=== PATIENT | male | born 1975 | race Caucasian/White ===

== ENCOUNTER 2018-02-01 05:37 | Day surgery (SDC) | payer BC, OTHER ==
[~2018-02-01 05:37] MED LIST: RINGERS SOLUTION,LACTATED 1,000 ML IV PRN; VANCOMYCIN HCL 1,000 MG in DEXTROSE 5%-WATER 250 ML IV PRN
[2018-02-01 06:31] LABS: ABSOLUTE EOSINOPHILS # (AUTO) 0.2 10^3/uL (0.0-0.6); ABSOLUTE LYMPHOCYTES (AUTO) 1.4 10^3/uL (0.5-4.7); ABSOLUTE MONOCYTES (AUTO) 0.6 10^3/uL (0.1-1.4); BASOPHILS % (AUTO) 0.3 % (0-2); EOSINOPHILS % (AUTO) 3.5 % (0-6); HEMATOCRIT 38.9 % (37.9-51.0); HEMOGLOBIN 14.3 g/dL (13.5-17.0); LYMPHOCYTES % (AUTO) 22.6 % (13-45); MEAN CORPUSCULAR HEMOGLOBIN 31.6 pg (27.0-33.4); MEAN CORPUSCULAR HGB CONC 36.7 g/dL (32.0-36.0); MEAN CORPUSCULAR VOLUME 86 fl (80-97); PLATELET COUNT 242 10^3/uL (150-450); RED BLOOD COUNT 4.53 10^6/uL (4.35-5.55); RED CELL DISTRIBUTION WIDTH 12.1 % (11.5-14.0); SEGMENTED NEUTROPHILS % (AUTO) 64.6 % (42-78); TOTAL CELLS COUNTED % (AUTO) 100 %; WHITE BLOOD COUNT 6.2 10^3/uL (4.0-10.5)
[2018-02-01] MEDS ORDERED: PROPOFOL INJ 200 MG/20 ML VIAL IV ONE ×2 (06:47→11:42)
[2018-02-01] MEDS ORDERED: MIDAZOLAM 2 MG/2 ML INJ ONE (06:47)
[2018-02-01] MEDS ORDERED: FENTANYL CITRATE INJ/PF 100 MCG/2 ML AMPUL ONE (06:47)
[2018-02-01] MEDS ORDERED: KETOROLAC TROMETHAMINE INJ/PF 30 MG/1 ML SDV ONE (07:55)
[2018-02-01] MEDS ORDERED: BUPIVACAINE HCL 0.25 % INJ/PF (2.5 MG/1 ML) 30 ML VIAL ONE (08:19)
[2018-02-01] MEDS ORDERED: LIDOCAINE 1% INJ-PF (10 MG/ML) 30 ML SDV ONE (08:20)
[2018-02-01] MEDS ORDERED: LIDOCAINE 2% INJ-PF (20 MG/ML) 10 ML AMPUL ONE (08:42)
[2018-02-01] MEDS ORDERED: MEPERIDINE HCL/PF INJ 25 MG/1 ML DISP.SYRIN IV PRN (10:30)
[2018-02-01] MEDS ORDERED: PROMETHAZINE HCL INJ 25 MG/1 ML VIAL IV PRN ×2 (10:30)
[2018-02-01] MEDS ORDERED: FENTANYL CITRATE INJ/PF 100 MCG/2 ML AMPUL IV PRN ×3 (10:30)
[2018-02-01] MEDS ORDERED: MORPHINE SULFATE 10 MG/ML INJ IV PRN (10:30)
[2018-02-01] MEDS ORDERED: OXYCODONE-ACETAMINOPHEN 5-325 MG TABLET PO PRN ×2 (10:30)
[2018-02-01] MEDS ORDERED: DIPHENHYDRAMINE HCL 50 MG/ML VIAL IV PRN (10:30)
--- NOTE | 2018-02-01 12:11 | RADIOLOGY REPORT (SQ) ---
EXAM DESCRIPTION: CHEST SINGLE VIEW COMPLETED DATE/TIME: 02/01/2018 12:02 pm REASON FOR STUDY: s/p port a cath placement COMPARISON: None. EXAM PARAMETERS: NUMBER OF VIEWS: One view. TECHNIQUE: Single frontal radiographic view of the chest acquired. RADIATION DOSE: NA LIMITATIONS: None. FINDINGS: LUNGS AND PLEURA: No opacities, masses or pneumothorax. No pleural effusion. MEDIASTINUM AND HILAR STRUCTURES: No masses. Contour normal. HEART AND VASCULAR STRUCTURES: Heart normal in size. Normal vasculature. BONES: No acute findings. HARDWARE: Left-sided permanent central line tip superior vena cava. No pneumothorax. OTHER: No other significant finding. IMPRESSION: Left-sided permanent central line tip superior vena cava. No pneumothorax. TECHNICAL DOCUMENTATION: JOB ID: [id number] [employer]- All Rights Reserved Reading location - IP/workstation name: [email or web address]
[2018-02-01 13:38] VITALS: BP 144/64
--- NOTE | 2018-02-01 16:14 | RADIOLOGY REPORT (SQ) ---
EXAM DESCRIPTION: FLUORO/CV PLACEMENT COMPLETED DATE/TIME: 02/01/2018 2:43 pm REASON FOR STUDY: PORTACATH PLCMT LEFT SIDE ASST WITH FLUORO IN OR C20 MALIGNANT NEOPLASM OF RECTUM COMPARISON: None. FLUOROSCOPY TIME: 1.3 minutes 2 digital fluoroscopic images saved to PACS. TECHNIQUE: Intra-operative images acquired during surgical procedure to evaluate progress. NUMBER OF IMAGES: 2 digital fluoroscopic images LIMITATIONS: None. FINDINGS: Intra procedural imaging and fluoro during placement of a left-sided permanent central edilia e with the tip in the superior vena cava IMPRESSION: IMAGE(S) OBTAINED DURING PROCEDURE. COMMENT: Quality ID [id number]: Final reports for procedures using fluoroscopy that document radiation exp osure indices, or exposure time and number of fluorographic images (if radiation exposure indices are not available) Please consult full operative report of the attending physician for description of the procedure. TECHNICAL DOCUMENTATION: JOB ID: [id number] [employer]- All Rights Reserved Reading location - IP/workstation name: [email or web address]
--- NOTE | 2018-02-01 21:58 | Discharge Summary ---
Discharge Summary (SDC) - Discharge Final Diagnosis: Metastatic colorectal cancer Date of Surgery: 02/01/18 Discharge Date: 02/01/18 Condition: Stable Forms: ASU Anesthesia D/C Instruction, Discharge POC-Surgical Service Referrals: RUTH ALATORRE MD [ACTIVE STAFF] - (Follow up as needed) Discharge Diet: As Tolerated Respiratory Treatments at Home: Deep Breathing/Coughing, Incentive Spirometer Discharge Activity: Activity As Tolerated Home Care Assistance: None Needed Report the Following to Your Physician Immediately: Shortness of Breath, Nausea , Vomiting, Increase in Pain, Fever over 101 Degrees, Unusual Bleeding
--- NOTE | 2018-02-01 22:07 | Operative Report ---
Nonrecallable Operative Report DATE OF SURGERY: 02/01/18 PREOPERATIVE DIAGNOSIS: Metastatic colorectal cancer POSTOPERATIVE DIAGNOSIS: Same as above OPERATION: 1. Ultrasound-guided central venous puncture. 2. Left internal jugular vein Mediport placement SURGEON: RUTH ALATORRE ANESTHESIA: LMAC TISSUE REMOVED OR ALTERED: None COMPLICATIONS: Kinking of the Mediport catheter, requiring removal and replacement of the catheter. ESTIMATED BLOOD LOSS: 30 cc PROCEDURE: Drains/implants: Left internal jugular vein Mediport. Procedure in detail: After informed consent was obtained, the patient was brought to the operating room and laid in the Trendelenburg position. The area of the neck and chest were prepped and draped in a normal sterile fashion. The ultrasound was used to identify the left internal jugular vein. It was compressible with normal flow. 1% lidocaine was then used to anesthetize the skin of the neck and left chest. Under direct ultrasonic guidance, the supplied access needle was used to cannulate the left internal jugular vein. Upon entry into the vein, there was noted to be dark venous, nonpulsatile blood returned into the syringe. The wire was inserted into the lumen of the vein. It was confirmed to be within the lumen of the vein using the ultrasound and fluoroscopy. Once this was confirmed, a separate incision was created in the left chest and a pocket was created for the Mediport hub. The catheter was tunneled from the hub insertion site to the needle insertion site. The dilator and breakaway sheath were then inserted over the wire. This was done under direct fluoroscopic guidance. The wire and dilator were removed, leaving the sheath within the superior vena cava. The catheter was placed into the breakaway sheath. The sheath was pulled away, leaving the catheter within the SVC. Once this was confirmed, the catheter was pulled back to an appropriate level. There was noted to be a kinking in the catheter at this time. The catheter did not flush easily. Secondary to this, the catheter was removed and replaced. This was successful. There was no kinking of the catheter after it was re-tunneled. The catheter was trimmed to length, and attached to the Mediport hub. The hub was placed into the pocket and sutured to the chest wall using 3-0 Vicryl suture. The subcutaneous tissue was then closed using 3-0 Vicryl suture. The overlying skin was closed using 4-0 Vicryl Rapide suture in subcuticular fashion. The Mediport was then accessed, aspirated, and flushed with heparinized saline. This flushed very easily. Dressings were placed, and the procedure was concluded. All sponge, instrument, and needle counts were correct x2. Condition: Stable.
== END 2018-02-01 13:15 | disposition home or self-care (01) ==
LOC: OROUT 05:37
PROVIDERS: ATTEND Surgery
DX: C20 Malignant neoplasm of rectum (principal)
CPT/HCPCS: 36415; 85025; 71045; 77001; 36561; C1788; J2250; J3010; J3490 ×2; J1885; J7060; J2704; J3370; J1642; 532

== ENCOUNTER → 2019-01-31 | Outpatient (CLI) | payer OTHER ==
--- NOTE | 2019-01-31 13:19 | RADIOLOGY REPORT (SQ) ---
EXAM DESCRIPTION: CT CHEST WITH; CT ABD/PELVIS WITH IV ORAL COMPLETED DATE/TIME: 01/31/2019 10:04 am; 01/31/2019 10:08 am REASON FOR STUDY: MALIGNANT NEOPLASM OF RECTUM C20 MALIGNANT NEOPLASM OF RECTUM COMPARISON: AP chest 02/01/2018 RENAL FUNCTION: Creatinine 1.2 TECHNIQUE: CT scan of the chest performed using helical scanning technique with dynamic intravenous contrast injection. Images reviewed with lung, soft tissue and bone windows. Reconstructed coronal a nd sagittal MPR images reviewed. All images stored on PACS. CT scan of the abdomen and pelvis performed with intravenous and with oral contrastusing helical scan luis technique with dynamic intravenous contrast injection. Images reviewed with lung, soft tissue a nd bone windows. Reconstructed coronal and sagittal MPR images reviewed. Delayed images for evaluat ion of the urinary system also acquired and evaluated. All images stored on PACS. All CT scanners at this facility use dose modulation, iterative reconstruction, and/or weight based d osing when appropriate to reduce radiation dose to as low as reasonably achievable (ALARA). [facility]: Dose Right [facility]: CareDose [facility]: Dose Right [facility]: Teradose 4D [facility]: [employer] RADIATION DOSE: CT Rad equipment meets quality standard of care and radiation dose reduction techniq ues were employed. CTDIvol: 5.3 - 5.5 mGy. DLP: 824 mGy-cm. . LIMITATIONS: None. FINDINGS: CHEST: LUNGS AND PLEURA: Multiple lung nodules are present. Index lesions are as follows: 2 x 1.4 cm nodule right upper lobe axial image 50/109 Anterior left upper lobe 1.5 x 1.3 cm axial image 69/109 No pleural effusion. No pneumothorax. Airways are patent. HILAR AND MEDIASTINAL STRUCTURES: No identified masses or abnormal nodes. HEART AND VASCULAR STRUCTURES: No aneurysm or dissection. No central pulmonary emboli. No pericardi al effusion. HARDWARE: Left-sided permanent central line tip superior vena cava THYROID AND OTHER SOFT TISSUES: No masses. No adenopathy. BONES: No significant finding. OTHER: No other significant finding. ABDOMEN AND PELVIS: LIVER: Liver masses are present, index lesions are as follows: Posterior right lobe liver 5 cm diameter axial image 27/98 Inferior right lobe liver 3.6 x 2.6 cm axial image 35/98 SPLEEN: Normal size. No focal lesions. PANCREAS: No masses. No significant calcifications. No adjacent inflammation or peripancreatic fluid collections. Pancreatic duct not dilated. GALLBLADDER: Multiple stones. No gallbladder wall thickening or pericholecystic fluid. ADRENAL GLANDS: No significant masses or asymmetry. RIGHT KIDNEY AND URETER: No solid masses. No significant calcification. No hydronephrosis or hydroure ter. LEFT KIDNEY AND URETER: No solid masses. No significant calcification. No hydronephrosis or hydrouret er. AORTA AND VESSELS: No aneurysm. No dissection. Renal arteries, SMA, celiac without stenosis. RETROPERITONEUM: No retroperitoneal adenopathy, hemorrhage or masses. BOWEL AND PERITONEAL CAVITY: Patient drank oral contrast. In the presacral fat, a tumor nodule is p resent measuring 3.5 cm craniocaudad x 3.4 cm AP x 2.2 cm transverse. This is best shown on axial im ages 67-72, coronal image 88, and sagittal image 40. Remainder the peritoneal space is otherwise unr emarkable. No ascites. No free intraperitoneal air. Oral contrast is seen throughout the gastroint estinal tract without bowel obstruction APPENDIX: Normal. ABDOMINAL WALL: No masses. No hernias. PELVIS: Presacral space mass 3.5 x 3.4 x 2.2 cm as above. No pelvic adenopathy or free fluid. Jodie l bladder. BONES: No significant or acute findings. OTHER: No other significant finding. IMPRESSION: Lung nodules as above Liver masses as above. Presacral soft tissue mass as above. COMMENT: No prior imaging for comparison at the time of dictation TECHNICAL DOCUMENTATION: JOB ID: [id number] Quality ID # [id number]: Final reports with documentation of one or more dose reduction techniques (e.g., Au tomated exposure control, adjustment of the mA and/or kV according to patient size, use of iterative reconstruction technique) 2010 [employer]- All Rights Reserved CONTRAST TYPE AND DOSE: contrast/concentration: Isovue 350.00 mg/ml; Total Contrast Delivered: 95.0 ml; Total Saline Delivered: 71.0 ml 95 mL of IV Omnipaque 350- low osmolar. Reading location - IP/workstation name: [email or web address]
== END ==
LOC: RAD 09:33
PROVIDERS: ATTEND Internal Medicine
DX: C20 Malignant neoplasm of rectum (principal)
CPT/HCPCS: 71260; 74177

== ENCOUNTER 2019-06-01 13:04 | Inpatient (IN) | payer OTHER ==
--- NOTE | 2019-06-01 14:00 | ER Document Report ---
ED General - General Chief Complaint: Shortness Of Breath Stated Complaint: SHORTNESS OF BREATH Primary Care Provider: RADHA GOMEZ MD [Primary Care Provider] - Follow up as needed Notes: Patient is a 43-year-old white male with a past medical history of stage IV colorectal cancer with mets to the liver and suspected mets to the brain per report from oncology who presents with a chief complaint of disorientation. The patient is unable to give history he states he is unsure what is really going on. States he just generally feels weak, confused and has some mild sensation of shortness of breath. I called and spoke with the patient's at his request to obtain a better history. I spoke with Fatimah at [phone]. She did confirm the history of colorectal cancer with mets to the liver. She is unsure if there is been mets to the brain. She states that his last set of scans were at [facility] and they were told that it had spread extensively but she is not sure if it had spread to the brain. She states on Tuesday about 3 days ago he began acting disoriented. She denies any history of him being recently ill or having a cough in the past 2 weeks. No known fevers. No recent travel outside of critical access hospital lines. is not ill. She reports his medications for pain were recently changed to morphine. The oncology office thought maybe his disorientation was in relation to this. She states that they stopped the morphine for 24 hours and the patient still presented with disorientation. His last dose of morphine was at 7 AM yesterday morning. The states he has not admitted to her that he was short of breath. They deny any other surgeries or known medical conditions. TRAVEL OUTSIDE OF THE [place] IN LAST 30 DAYS: No - Related Data Allergies/Adverse Reactions: Penicillins Adverse Reaction (Severe, Verified 02/01/18 06:24) Generalized rash Past Medical History - Social History Smoking Status: Unknown if Ever Smoked Family History: Reviewed & Not Pertinent - Past Medical History Cardiac Medical History: Denies: Hx Congestive Heart Failure, Hx Coronary Artery Disease, Hx Heart Attack, Hx Hypertension Pulmonary Medical History: Denies: Hx Asthma, Hx Bronchitis, Hx COPD, Hx Pneumonia, Hx Tuberculosis Neurological Medical History: Denies: Hx Cerebrovascular Accident, Hx Seizures, Hx Parkinson's Disease Renal/ Medical History: Denies: Hx Benign Prostatic Hyperplasia, Hx End Stage Renal Disease, Hx Kidney Stones GI Medical History: Denies: Hx Cirrhosis, Hx Gastroesophageal Reflux Disease, Hx Ulcer Musculoskeletal Medical History: Denies Hx Arthritis, Denies Hx Multiple Sclero sis Psychiatric Medical History: Denies: Hx Bipolar Disorder, Hx Depression, Hx Schizophrenia - Immunizations Hx Diphtheria, Pertussis, Tetanus Vaccination: Yes - 2016 Review of Systems - Review of Systems -: Yes ROS unobtainable due to patient's medical condition Physical Exam - Vital signs Vitals: Resp 22 H 06/01/19 13:41 - General General appearance: Alert In distress: None - HEENT Head: Normocephalic, Atraumatic Eyes: Normal Conjunctiva: Normal Extraocular movements intact: Yes Pupils: PERRL External canal: Normal Tympanic membrane: Normal Nasal: Normal Mouth/Lips: Normal Mucous membranes: Normal, Moist Pharynx: Normal Neck: Normal - Respiratory Respiratory status: No respiratory distress Chest status: Nontender Breath sounds: Normal Chest palpation: Normal - Cardiovascular Rhythm: Regular Heart sounds: Normal auscultation - Extremities General upper extremity: Normal inspection, Nontender, Normal color, Normal ROM, Normal temperature General lower extremity: Normal inspection, Nontender, Normal color, Normal ROM, Normal temperature, Normal weight bearing. No: Ana's sign - Neurological Neuro grossly intact: Yes Cognition: Confused Orientation: Disoriented to person, Disoriented to place, Disoriented to time Ophelia Coma Scale Eye Opening: Spontaneous Corning Coma Scale Verbal: Oriented Corning Coma Scale Motor: Obeys Commands Corning Coma Scale Total: 15 Speech: Normal Cranial nerves: Normal Cerebellar coordination: Normal Motor strength normal: RUE, LLE, RLE Additional motor exam normals: Other - No effort against gravity left upper extremity. No obvious control of the left upper extremity, dystaxia. 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 Unable to perform rapid alternating hand movements or [id number] with the left hand. Notes: Limited exam due to AMS - Psychological Associated symptoms: Confused, Flat affect - Skin Skin Temperature: Warm Skin Moisture: Dry Skin Color: Normal Course - Re-evaluation Re-evalutation: 06/01/19 14:49 EK, sinus tachycardia at 115 bpm. Normal intervals. Some T wave inversions noted in the anterior lateral leads with some questionable ST elevation in the lateral leads. No prior EKG for comparison. Troponins pending at this time. Patient not complaining of chest pain. 06/01/19 16:[address] Richardson regarding the patient's EKG and his elevated troponin. It is obvious the patient is having a STEMI. We immediately consulted with Dr. Choi, automation qa analyst on-call who reviewed the EKG and discussed the patient's case, he agreed with STEMI and recommended transfer to [facility]. I discussed with Dr. Oconnell at [facility] STEMI line who discussed the case with Dr. Isbell. I discussed the patient's history of stage IV colorectal cancer with new findings of brain mets, elevated INR with new onset Eliquis yesterday for PEs and incidental right-sided pneumonia. They recommended that they would only undergo medical management, no interventions would be applied given the patient's history. I discussed this with the who advised that the patient is DNR. We do not currently have the paperwork for that but she reports that she is his power of employee benefits attorney. She was at the patient's bedside by myself and Dr. Richardson discussed this with the patient and herself. They would like comfort measures here in the hospital, they would like the pneumonia managed, his pain managed and consult with hospice care. I discussed this with our hospitalist, Dr. Perkins who will admit the patient to [facility] for further care and management. Patient is stable at this time. He has a nitro drip going at 5. He was given Dilaudid for pain and Levaquin for pneumonia. - Vital Signs Vital signs: Temp Pulse Resp BP Pulse Ox 98.2 F 110 H 18 145/96 H 99 06/01/19 14:12 06/01/19 14:12 06/01/19 14:12 06/01/19 14:12 06/01/19 14:12 - Laboratory Result Diagrams: 06/01/19 14:02 06/01/19 14:02 Laboratory results interpreted by me: 06/01/19 06/01/19 06/01/19 14:02 14:02 14:02 WBC 19.1 H RBC 2.65 L Hgb 8.0 L Hct 24.0 L RDW 19.7 H Seg Neuts % (Manual) 88 H Lymphocytes % (Manual) 4 L Abs Neuts (Manual) 16.8 H Abs Monocytes (Manual) 1.5 H PT 42.5 H APTT 59.3 H Sodium 132.4 L Chloride 95 L Carbon Dioxide 32 H Glucose 132 H Calcium 8.3 L AST 222 H ALT 68 H Alkaline Phosphatase 464 H Ammonia Creatine Kinase 1107 H Albumin 2.8 L 06/01/19 15:40 WBC RBC Hgb Hct RDW Seg Neuts % (Manual) Lymphocytes % (Manual) Abs Neuts (Manual) Abs Monocytes (Manual) PT APTT Sodium Chloride Carbon Dioxide Glucose Calcium AST ALT Alkaline Phosphatase Ammonia < 8.7 L Creatine Kinase Albumin Discharge - Discharge Clinical Impression: Metastatic colorectal cancer Altered mental status Qualifiers: Altered mental status type: unspecified Qualified Code(s): R41.82 - Altered mental status, unspecified STEMI (ST elevation myocardial infarction) Qualifiers: Involved coronary artery: unspecified coronary artery Qualified Code(s): I21.3 - ST elevation (STEMI) myocardial infarction of unspecified site Pulmonary embolism Qualifiers: Pulmonary embolism type: unspecified Chronicity: unspecified Acute cor pulmonale presence: unspecified Qualified Code(s): I26.99 - Other pulmonary embolism without acute cor pulmonale Pneumonia Qualifiers: Pneumonia type: due to unspecified organism Laterality: unspecified laterality Lung location: unspecified part of lung Qualified Code(s): J18.9 - Pneumonia, unspecified organism Condition: Stable Disposition: ADMITTED INPATIENT Admitting Provider: Maddie (Hospitalist) Unit Admitted: IMCU Referrals: RADHA GOMEZ MD [Primary Care Provider] - Follow up as needed
[2019-06-01 14:29] LABS: MEAN CORPUSCULAR HEMOGLOBIN 30.4 pg (27.0-33.4); MEAN CORPUSCULAR HGB CONC 33.5 g/dL (32.0-36.0); MEAN CORPUSCULAR VOLUME 91 fl (80-97); PLATELET COUNT 226 10^3/uL (150-450); RED BLOOD COUNT 2.65 10^6/uL (4.35-5.55); RED CELL DISTRIBUTION WIDTH 19.7 % (11.5-14.0); WHITE BLOOD COUNT 19.1 10^3/uL (4.0-10.5)
[2019-06-01 14:35] LABS: INTERNATIONAL RATION (INR) 4.31; PROTHROMBIN TIME 42.5 SEC (11.4-15.4)
[2019-06-01 14:36] LABS: PARTIAL THROMBOPLASTIN TIME 59.3 SEC (23.5-35.8)
[2019-06-01 14:52] LABS: ALBUMIN 2.8 g/dL (3.5-5.0); ALKALINE PHOSPHATASE 464 U/L (38-126); ANION GAP 5 (5-19); ASPARTATE AMINO TRANSFERASE 222 U/L (17-59); BILIRUBIN,DIRECT 0.4 mg/dL (0.0-0.4); BILIRUBIN,TOTAL 0.6 mg/dL (0.2-1.3); BLOOD UREA NITROGEN 15 mg/dL (7-20); CALCIUM 8.3 mg/dL (8.4-10.2); CARBON DIOXIDE 32 mmol/L (22-30); CHLORIDE 95 mmol/L (98-107); CREATINE KINASE 1107 U/L (55-170); GLUCOSE 132 mg/dL (75-110); TOTAL PROTEIN 6.4 g/dL (6.3-8.2)
[2019-06-01 14:53] LABS: ABSOLUTE LYMPHOCYTES# (MANUAL) 0.8 10^3/uL (0.5-4.7); ABSOLUTE MONOCYTES # (MANUAL) 1.5 10^3/uL (0.1-1.4); BASOPHILS % (MANUAL) 0 % (0-2); EOSINOPHILS % (MANUAL) 0 % (0-6); LYMPHOCYTES % (MANUAL) 4 % (13-45); MONOCYTES % (MANUAL) 8 % (3-13); SEGMENTED NEUTROPHILS % (MAN) 88 % (42-78); TOTAL CELLS COUNTED 100
[2019-06-01 14:54] LABS: OVALOCYTES SLIGHT; PLATELET COMMENT ADEQUATE; POLYCHROMASIA 1+
[2019-06-01 14:55] LABS: ANISOCYTOSIS 2+
[2019-06-01] MEDS ORDERED: LIDOCAINE 2% INJ-PF (100 MG/5 ML) SYRINGE ONE (15:30)
[2019-06-01] MEDS ORDERED: AMIODARONE HCL INJ 150 MG/3 ML VIAL IV ONE (15:30)
[2019-06-01] MEDS ORDERED: MORPHINE SULFATE 10 MG/ML INJ IV ONE (16:12)
[2019-06-01] MEDS ORDERED: NITROGLYCERIN/D5W 50 MG/250 ML RTUINJ IV PRN (16:12)
[2019-06-01] MEDS ORDERED: LEVOFLOXACIN 750 MG/D5W RTU 750 MG/150 ML RTUPB IV ONE (16:14)
--- NOTE | 2019-06-01 16:25 | RADIOLOGY REPORT (SQ) ---
EXAM DESCRIPTION: CTA CHEST IMAGES COMPLETED DATE/TIME: 06/01/2019 3:52 pm REASON FOR STUDY: AMS, SOB, h/o CA COMPARISON: 01/31/2019 TECHNIQUE: CT scan of the chest performed using helical scanning technique with dynamic intravenous contrast injection. Images reviewed with lung, soft tissue and bone windows. Reconstructed coronal and sagittal MPR images reviewed. Additional 3 dimensional post-processing performed to develop Maximal Intensity Projection images ([place] P). All images stored on PACS. All CT scanners at this facility use dose modulation, iterative reconstruction, and/or weight based d osing when appropriate to reduce radiation dose to as low as reasonably achievable (ALARA). [facility]: Dose Right [facility]: CareDose [facility]: Dose Right [facility]: Teradose 4D [facility]: [employer] CONTRAST TYPE AND DOSE: contrast/concentration: Isovue 350.00 mg/ml; Total Contrast Delivered: 65.0 ml; Total Saline Delivered: 80.0 ml Contrast bolus optimized for the pulmonary arteries. Not diagnostic for the aorta. RENAL FUNCTION: See chart RADIATION DOSE: CT Rad equipment meets quality standard of care and radiation dose reduction techniq ues were employed. CTDIvol: 19.8 - 29.8 mGy. DLP: 1040 mGy-cm. . LIMITATIONS: None. FINDINGS: LUNGS AND PLEURA: Multifocal pulmonary metastatic disease which has increased from prior i n size and number. Previously referenced right upper lobe pulmonary nodule measuring 2.0 cm now chloe ures 33 mm (series 4, image 48). Previously referenced anterior left upper lobe nodule measuring 15 mm now measures 22 mm (series 4, image 62). Multiple additional pulmonary nodules have increased in size and number. There is additional patchy airspace disease within the right upper lobe, likely pos tobstructive atelectasis or pneumonia. No significant pleural effusion. No pneumothorax. AORTA AND GREAT VESSELS: No aneurysm. Contrast bolus not optimized for the aorta. HEART: No pericardial effusion. No significant coronary artery calcifications. Right to left ventric ular ratio is normal. PULMONARY ARTERIES: No central pulmonary embolus. There is segmental and subsegmental clot most cons picuous within the left lower lobe (series 3, image 63 -69). HILAR AND MEDIASTINAL STRUCTURES: Mediastinal adenopathy. Prevascular node measures 17 mm in short a xis (series 3, image 38). Right hilar adenopathy with narrowing of the right upper lobe bronchi and pulmonary vasculature. HARDWARE: Left-sided chest port with catheter tip at cavoatrial junction. UPPER ABDOMEN: Multifocal hepatic metastatic disease, increased from prior exam. THYROID AND OTHER SOFT TISSUES: No masses. BONES: No acute bony abnormality. No suspicious osseous lesions. 3D MIPS: Confirm above findings. OTHER: No other significant finding. IMPRESSION: 1. Positive pulmonary embolus with segmental and subsegmental pulmonary emboli most con spicuous within the left lower lobe. No central pulmonary embolus. No evidence of right heart strai n. 2. Worsening multifocal metastatic disease throughout the thorax. There is associated right upper l obe airspace disease, likely postobstructive atelectasis/pneumonia. 3. Worsening hepatic metastatic disease. Findings conveyed to Dr. Penny at 0417 hours on 06/01/2019 COMMENT: Quality ID # [id number]: Final reports with documentation of one or more dose reduction techniques (e.g., Automated exposure control, adjustment of the mA and/or kV according to patient size, use of iterative reconstruction technique) TECHNICAL DOCUMENTATION: JOB ID: [id number] 2010 [employer]- All Rights Reserved Reading location - IP/workstation name: [email or web address]
--- NOTE | 2019-06-01 16:26 | RADIOLOGY REPORT (SQ) ---
EXAM DESCRIPTION: CT HEAD COMBO IMAGES COMPLETED DATE/TIME: 06/01/2019 3:52 pm REASON FOR STUDY: ams, h/o brain mets COMPARISON: None. TECHNIQUE: Axial images acquired through the brain without and with intravenous contrast. Images re viewed with bone, brain and subdural windows. Additional sagittal and coronal reconstructions were g enerated. Images stored on PACS. All CT scanners at this facility use dose modulation, iterative reconstruction, and/or weight based d osing when appropriate to reduce radiation dose to as low as reasonably achievable (ALARA). [facility]: Dose Right [facility]: CareDose [facility]: Dose Right [facility]: Teradose 4D [facility]: [employer] CONTRAST TYPE AND DOSE: See chart RENAL FUNCTION: Creatinine 1.10 RADIATION DOSE: CT Rad equipment meets quality standard of care and radiation dose reduction techniq ues were employed. CTDIvol: 53.2 mGy. DLP: 1044 mGy-cm.. LIMITATIONS: None. FINDINGS: VENTRICLES: Normal size and contour. CEREBRUM: No evidence of intracranial hemorrhage. There are focal areas of hypoattenuation within th e right periventricular frontal lobe white matter measuring up to 1.9 cm (series 2, image 21). Addit ional areas of focal hypoattenuation within the right centrum semiovale along the posterior frontopar ietal lobes. No definitive postcontrast enhancement. No evidence of large vascular territory infarc t. Beltrán-white differentiation is preserved. CEREBELLUM: No masses. No hemorrhage. Focal area of hypoattenuation within the left medial cerebella r with near CSF attenuation. No evidence for acute infarction. No enhancing lesions. EXTRA-AXIAL SPACES: No fluid collections. No enhancing lesions. ORBITS AND GLOBE: No intra- or extraconal masses. Normal contour of globe without masses. CALVARIUM: No fracture. PARANASAL SINUSES: No fluid or mucosal thickening. SOFT TISSUES: No mass or hematoma. OTHER: No other significant finding. IMPRESSION: 1. Focal areas of hypoattenuation within the right periventricular frontal lobe white m atter, right posterior frontal parietal white matter and left cerebellar hemisphere. No definite pos tcontrast enhancement. Findings may represent age-indeterminate lacunar infarcts or reported intracr anial metastatic disease. No priors are available for comparison. MR could be considered for better delineation. 2. No other evidence of acute intracranial process. Findings conveyed to Penny 1602 hours on 06/01/2019. TECHNICAL DOCUMENTATION: JOB ID: [id number] Quality ID # [id number]: Final reports with documentation of one or more dose reduction techniques (e.g., Au tomated exposure control, adjustment of the mA and/or kV according to patient size, use of iterative reconstruction technique) 2010 [employer]- All Rights Reserved Reading location - IP/workstation name: [email or web address]
[2019-06-01] MEDS ORDERED: HYDROMORPHONE HCL INJ/PF 2 MG/ML AMPULE IV ONE ×2 (16:44→18:22)
--- NOTE | 2019-06-01 16:47 | EKG REPORT ---
SEVERITY:- ABNORMAL ECG - SINUS TACHYCARDIA PROBABLE INFERIOR INFARCT, AGE INDETERMINATE ANTEROLATERAL INFARCT, RECENT : Confirmed by: Deena Zayas 01-Jun-2019 16:46:57
[2019-06-01 16:55] LABS: A TYPE INFLUENZA AG NEGATIVE (NEGATIVE); B INFLUENZA AG NEGATIVE (NEGATIVE)
[2019-06-01] MEDS ORDERED: NORMAL SALINE 1000 ML 1,000 ML IV PRN (18:31)
--- NOTE | 2019-06-01 18:47 | CRITICAL CARE ADMISSION REPORT ---
HPI Date:: 06/01/19 Time:: 18:00 Reason for ICU Reason:: AMI HPI: This patient is a 43 yo man who is complaining of chest and back pain. He is having a STEMI by clinical, EKG criteria and troponin of 30. However he also has stage 4 colon cancer with mets to the liver and possibly brain. His desire for this admission is to be pain free and go home on hospice. We will treat medically for tonight get him pain free and they have chosen [facility] for home. He is a full code to get him through the night. History obtained from:: Patient and . - Diagnosis/Plan (1) STEMI (ST elevation myocardial infarction) Qualifiers: Involved coronary artery: unspecified coronary artery Qualified Code(s): I21.3 - ST elevation (STEMI) myocardial infarction of unspecified site Is this a current diagnosis for this admission?: Yes Plan: Treat only medically, when pain free send home on hospice. (2) Altered mental status Qualifiers: Altered mental status type: unspecified Qualified Code(s): R41.82 - Altered mental status, unspecified Is this a current diagnosis for this admission?: Yes Plan: Somewhat altered because of illnesses (3) Metastatic colorectal cancer Is this a current diagnosis for this admission?: Yes Plan: He is a patient of Dr. Gonzalez. Metastatic disease. Hope to get home on hospice in AM. - . Plan Summary: Pain control and hospice consult Past Medical History Cardiac Medical History: Denies: Congestive Heart Failure, Coronary Artery Disease, Myocardial Infarction, Hypertension Pulmonary Medical History: Denies: Asthma, Bronchitis, Chronic Obstructive Pulmonary Disease (COPD), Pneumonia, Tuberculosis Neurological Medical History: Denies: Seizures Renal/ Medical History: Denies: End Stage Renal Disease GI Medical History: Denies: Cirrhosis, Gastroesophageal Reflux Disease Musculoskeltal Medical History: Denies: Arthritis Psychiatric Medical History: Denies: Bipolar Disorder, Depression Hematology: Reports: Anemia Denies: Bleeding Tendencies Social/Family History - Social History Smoking Status: Unknown if Ever Smoked Drugs: None - Medication/Allergies Home Medications: Ibuprofen [Ibuprofen Ib] 200 mg PO PRN PRN 01/31/18 Oxycodone HCl/Acetaminophen [Percocet 5-325 mg Tablet] 1 tab PO ASDIR PRN 01/31/18 Allergies/Adverse Reactions: Penicillins Adverse Reaction (Severe, Verified 02/01/18 06:24) Generalized rash Review of Systems Constitutional: PRESENT: fatigue, weakness Eyes: ABSENT: visual disturbances Ears: ABSENT: hearing changes Cardiovascular: PRESENT: chest pain Respiratory: ABSENT: cough, hemoptysis Gastrointestinal: PRESENT: abdominal pain Genitourinary: ABSENT: dysuria, hematuria Musculoskeletal: ABSENT: joint swelling Integumentary: ABSENT: rash, wounds Neurological: ABSENT: abnormal gait, abnormal speech, confusion, dizziness, focal weakness, syncope Psychiatric: ABSENT: anxiety, depression, homidical ideation, suicidal ideation Endocrine: ABSENT: cold intolerance, heat intolerance, polydipsia, polyuria Hematologic/Lymphatic: ABSENT: easy bleeding, easy bruising Physical Exam Vital Signs: Temp Pulse Resp BP Pulse Ox 98.2 F 110 H 19 136/98 H 99 06/01/19 14:12 06/01/19 14:12 06/01/19 16:01 06/01/19 16:00 06/01/19 14:12 Intake & Output 05/31/19 06/01/19 06/02/19 06:59 06:59 06:59 Weight 71.668 kg Weight/Height Weight 71.668 kg Height 5 ft 10 in General appearance: PRESENT: no acute distress, thin Head exam: PRESENT: atraumatic, normocephalic Eye exam: PRESENT: conjunctiva pink, EOMI, PERRLA. ABSENT: scleral icterus Ear exam: PRESENT: normal external ear exam Mouth exam: PRESENT: moist, tongue midline Cardiovascular exam: PRESENT: RRR. ABSENT: diastolic murmur, rubs, systolic murmur Vascular exam: PRESENT: normal capillary refill GI/Abdominal exam: PRESENT: normal bowel sounds, soft, tenderness. ABSENT: distended, guarding, mass, organolmegaly, rebound Rectal exam: PRESENT: deferred Extremities exam: PRESENT: full ROM. ABSENT: calf tenderness, clubbing, pedal edema Neurological exam: PRESENT: alert, altered, awake, oriented to person, oriented to place, oriented to time, oriented to situation, CN II-XII grossly intact. ABSENT: motor sensory deficit Skin exam: PRESENT: dry, intact, warm. ABSENT: cyanosis, rash Laboratory/Radiographs Laboratory Results: 06/01/19 14:02 06/01/19 14:02 06/01/19 06/01/19 06/01/19 14:02 14:02 15:40 WBC 19.1 H RBC 2.65 L Hgb 8.0 L Hct 24.0 L MCV 91 MCH 30.4 MCHC 33.5 RDW 19.7 H Plt Count 226 Seg Neutrophils % Not Reportable Sodium 132.4 L Potassium 4.0 Chloride 95 L Carbon Dioxide 32 H Anion Gap 5 BUN 15 Creatinine 1.01 Est GFR ( Amer) > 60 Glucose 132 H Calcium 8.3 L Magnesium 2.3 Total Bilirubin 0.6 AST 222 H Alkaline Phosphatase 464 H Ammonia < 8.7 L Total Protein 6.4 Albumin 2.8 L 06/01/19 06/01/19 14:02 14:02 Creatine Kinase 1107 H Troponin I 30.600 Impressions: Chest/Abdomen CTA 06/01/19 13:46 IMPRESSION: 1. Positive pulmonary embolus with segmental and subsegmental pulmonary emboli most conspicuous within the left lower lobe. No central pulmonary embolus. No evidence of right heart strain. 2. Worsening multifocal metastatic disease throughout the thorax. There is associated right upper lobe airspace disease, likely postobstructive atelectasis/pneumonia. 3. Worsening hepatic metastatic disease. Findings conveyed to Dr. Penny at 0417 hours on 06/01/[address] 06/01/19 13:46 IMPRESSION: 1. Focal areas of hypoattenuation within the right periventricular frontal lobe white matter, right posterior frontal parietal white matter and left cerebellar hemisphere. No definite postcontrast enhancement. Findings may represent age-indeterminate lacunar infarcts or reported intracranial metastatic disease. No priors are available for comparison. MR could be considered for better delineation. 2. No other evidence of acute intracranial process. Findings conveyed to Zohaib 1602 hours on 06/01/2019. EKG: Recent anterolateral infarctg, NSR. All labs, radiographs, diagnostic studies and EKGs were personally reviewed: Yes In addition, reports of radiographic and diagnostic studies were read: Yes Critical Time Critical Time (minutes): 40 -: The care of a critically ill patient is dynamic. This note represents a static moment in the admission process. Orders and treatments may be given simultaneously and urgently, and time is not vendor representatives of the treatment process. This patient requires Critical Care secondary to life threatening organ or limb dysfunction. Without Critical Care services, the patient is at risk for increased mortality and morbidity.
[2019-06-01 19:21] LABS: APPEARANCE,URINE CLEAR; BILIRUBIN,URINE NEGATIVE (NEGATIVE); COLOR,URINE YELLOW; GLUCOSE, URINE NEGATIVE (NEGATIVE); KETONES,URINE NEGATIVE (NEGATIVE); PROTEIN,URINE NEGATIVE (NEGATIVE); URINE SPECIFIC GRAVITY 1.036; UROBILINOGEN,URINE NEGATIVE mg/dL (<2.0)
[2019-06-01] MEDS ORDERED: NITROGLYCERIN 15 MG (0.6 MG/1 HR) PATCH.TD24 TD SCH (19:30)
[2019-06-01 19:31] LABS: URINE AMPHETAMINES SCREEN NEGATIVE; URINE BARBITURATES SCREEN NEGATIVE; URINE BENZODIAZEPINES SCREEN NEGATIVE; URINE COCAINE SCREEN NEGATIVE; URINE MARIJUANA (THC) SCREEN NEGATIVE; URINE METHADONE SCREEN NEGATIVE; URINE PHENCYCLIDINE SCREEN NEGATIVE
[2019-06-01] MEDS: HYDROMORPHONE HCL INJ/PF 2 MG/ML AMPULE IV PRN ×3 (19:35→23:38)
[2019-06-01] MEDS: FAMOTIDINE 20 MG TABLET PO SCH (19:35)
[2019-06-01] MEDS: IPRATROPIUM/ALBUTEROL 0.5-2.5 MG/3 ML AMPUL NEB SCH (20:56)
[2019-06-01] MEDS ORDERED: OXYCODONE HCL IR 5 MG TABLET PO ONE (23:00)
[2019-06-02] MEDS: HYDROMORPHONE HCL INJ/PF 2 MG/ML AMPULE IV PRN ×4 (02:15→16:15)
[2019-06-02] MEDS: IPRATROPIUM/ALBUTEROL 0.5-2.5 MG/3 ML AMPUL NEB SCH ×3 (02:30→16:22)
[2019-06-02] MEDS ORDERED: FENTANYL CITRATE INJ/PF 100 MCG/2 ML AMPUL IV ONE (04:00)
[2019-06-02] MEDS ORDERED: OXYCODONE HCL IR 5 MG TABLET PO PRN (05:47)
[2019-06-02] MEDS ORDERED: FENTANYL CITRATE INJ/PF 100 MCG/2 ML AMPUL IV PRN (05:50)
[2019-06-02] MEDS: FAMOTIDINE 20 MG TABLET PO SCH (06:20)
[2019-06-02] MEDS: METHOCARBAMOL 500 MG TABLET PO SCH ×3 (06:20→14:45)
[2019-06-02 08:12] VITALS: BP 138/91
[2019-06-02] MEDS ORDERED: MAGNESIUM SULFATE/D5W 2 GM/200 ML RTUPB IV ONE (08:59)
[2019-06-02] MEDS: MAGNESIUM SULFATE 1 GM/D5W 100 ML IV SCH ×2 (09:04→09:12)
[2019-06-02] MEDS ORDERED: PROPOFOL INJ 200 MG/20 ML VIAL IV ONE ×2 (09:05→11:00)
[2019-06-02] MEDS ORDERED: MIDAZOLAM 2 MG/2 ML INJ ONE (09:05)
[2019-06-02] MEDS ORDERED: MIDAZOLAM 2 MG/2 ML INJ IV ONE (11:00)
[2019-06-02] MEDS ORDERED: IPRATROPIUM/ALBUTEROL 0.5-2.5 MG/3 ML AMPUL NEB PRN (14:32)
[2019-06-02] MEDS ORDERED: FENTANYL 50 MCG/HR PATCH.TD72 TD ONE (16:15)
--- NOTE | 2019-06-03 10:51 | EKG REPORT ---
SEVERITY:- ABNORMAL ECG - SINUS TACHYCARDIA PROBABLE LEFT ATRIAL ABNORMALITY PROBABLE INFERIOR INFARCT, AGE INDETERMINATE ANTEROLATERAL INFARCT, RECENT : Confirmed by: Deena Zayas 03-Jun-2019 10:49:16
== END 2019-06-02 17:05 | disposition hospice, home (50) | DRG 280 ==
LOC: ER 13:04 → EH 17:10 → ICU 20:45
PROVIDERS: ADMIT Anesthesiology; ATTEND Anesthesiology
DX: I21.3 ST elevation (STEMI) myocardial infarction of unspecified site (principal); J18.9 Pneumonia, unspecified organism; I26.99 Other pulmonary embolism without acute cor pulmonale; C19 Malignant neoplasm of rectosigmoid junction; C78.7 Secondary malignant neoplasm of liver and intrahepatic bile duct; C79.31 Secondary malignant neoplasm of brain; R41.82 Altered mental status, unspecified
CPT/HCPCS: 36415; 70470; 71275; 80053; 80307; 81001; 82140; 82550; 83735; 84484; 85025; 85610; 85730; 87040; 87070; 87077; 87150; 87804; 87880; 93005; 93010; 94640; 96374; 99285; 99291; J0282; J1170; J1956; J2001; J2250; J2704; J3010; J3475; J3490; J7030; J7620